=== PATIENT | female | born 2000 | race Caucasian/White ===

== ENCOUNTER 2020-04-20 08:27 | Observation (INO) | payer OTHER, SELFPAY ==
[2020-04-20 08:26] VITALS: BP 136/63; PULSE 80; RESP 18; TEMP 36.5; O2SAT 96
[2020-04-20 08:45] VITALS: BMI 30.4
[2020-04-20 09:06] VITALS: BP 130/60; PULSE 73
[2020-04-20 09:15] VITALS: BP 125/67; PULSE 70
[2020-04-20 09:24] LABS: Add Urine Microscopic? YES; Appearance Urine Clear (Clear); Bacteria Urine Trace /hpf; Bilirubin Urine Negative (Negative); Blood Urine Negative (Negative); Color Urine Yellow (Yellow); Glucose Urine UA Negative (Negative); Ketones Urine Negative (Negative); Leukocyte Esterase Ur 2+ LEU/UL (NEGATIVE); Mucus Urine Rare /lpf; Nitrate Urine Negative (Negative); Protein Urine Negative (Negative); Specific Grav Ur 1.011 (1.001-1.035); Squamous Epithelial Cell Urine Moderate /hpf (Few); Urobilinogen Urine Negative mg/dL (<2.0)
[2020-04-20 09:30] VITALS: BP 125/63; PULSE 70
[2020-04-20 09:45] VITALS: BP 131/56; PULSE 65
--- NOTE | 2020-04-20 10:21 | OBADM ---
This patient, Ramakrishna Canada, admitted to the OB room OB Post 117 for observation. Patient/family oriented to hospital policies and general routines including ID bracelet, bed and alarms, visiting hours, pain management, procedures, bathroom and other care routines, personal items, smoking policy, room service/diet, and visiting hours. Patient/Family are encouraged to report perceived risks to care and to ask questions if they do not understand what they are told or what they should do.
--- NOTE | 2020-05-03 07:14 | PM.OBTRLD ---
OB - Triage/Final Diagnosis Visit Information Reason for evaluation: threatened labor Evaluation Laboratory results: Laboratory Tests 04/20/20 09:05 Urine Color Yellow Urine Appearance Clear Urine pH 7.0 Ur Specific [place] 1.011 Urine Protein Negative Urine Glucose (UA) Negative Urine Ketones Negative Ur Blood (Man) Negative Urine Nitrate Negative Urine Bilirubin Negative Urine Urobilinogen Negative Ur Leukocyte Esterase 2+ H Urine RBC 3-5 H Urine WBC 10-15 H Ur Squamous Epith Cells Moderate H Urine Bacteria Trace Urine Mucus Rare
== END 2020-04-20 10:10 | disposition home or self-care (01) ==
PROVIDERS: Admitting Provider Obstetrics & Gynecology; PCP Emergency Medicine; Visit Provider Obstetrics & Gynecology
DX: O47.9 False labor, unspecified (principal); Z3A.00 Weeks of gestation of pregnancy not specified
CPT/HCPCS: 81001; 87086; G0378; G0379

== ENCOUNTER 2020-07-02 12:17 | Observation (INO) | payer OTHER, SELFPAY ==
[2020-07-02] VITALS (7 sets, daily range): BP systolic 140–150; BP diastolic 44–85; PULSE 79–94; BMI 35.6
[2020-07-02 13:19] LABS: Add Urine Microscopic? YES; Appearance Urine Clear (Clear); Bacteria Urine Trace /hpf; Bilirubin Urine Negative (Negative); Blood Urine Negative (Negative); Color Urine Straw (Yellow); Glucose Urine UA Negative (Negative); Ketones Urine Negative (Negative); Leukocyte Esterase Ur Trace LEU/UL (Negative); Nitrate Urine Negative (Negative); Protein Urine Negative (Negative); RBC Urine 0-2 /hpf (0-2); Specific Grav Ur 1.008 (1.001-1.035); Squamous Epithelial Cell Urine Rare /hpf (Few); Urobilinogen Urine Negative mg/dL (<2.0)
[2020-07-02 13:49] LABS: Basophils Percent Auto 0.1 % (0.2-1.2); Eosinophils Absolute Auto 0.2 K/mm3 (0-0.3); Eosinophils Percent Auto 1.5 % (0-4.4); Immature Granulocyte Absolute 0.09 K/mm3 (0.00-0.031); Immature Granulocyte Percent A 0.6 % (0-0.5); Lymphocytes Absolute Auto 3.03 K/mm3 (0.9-3.2); Lymphocytes Percent Auto 19.3 % (18.3-44.2); Mean Corpuscular HGB Conc 34.3 g/dl (32-36); Mean Corpuscular Hemoglobin 31.1 pg (26-34); Mean Corpuscular Volume 90.7 fl (80-100); Mean Platelet Volume 10.1 fl (7.4-10.4); Monocytes Percent Auto 6.4 % (2.6-8.5); Neutrophils Absolute Auto 11.3 K/mm3 (1.3-6.7); Neutrophils Percent Auto 72.1 % (45.5-73.1); Platelet Count Result 277 k/mm3 (150-375); Red Blood Count 3.86 M/mm3 (4.2-5.4); Red Cell Distribution Width 12.2 % (11.5-14.5); White Blood Count 15.7 K/mm3 (4.5-10.0)
[2020-07-02 13:54] LABS: Creatinine Urine 31.7 mg/dL; Total Protein Urine Random 19 mg/dL
[2020-07-02 14:02] LABS: Alanine Aminotransferase 17 U/L (4-35); Albumin Level 3.2 g/dL (3.5-5.1); Alkaline Phosphatase 98 U/L (38-126); Anion Gap 4 mmol/L (8-16); Aspartate Amino Transferase 26 U/L (14-36); Bilirubin,Total 0.3 mg/dL (0.2-1.3); Blood Urea Nitrogen 4 mg/dL (7-17); Calcium 9.1 mg/dL (8.4-10.2); Carbon Dioxide 29 mmol/L (22-30); Chloride 106 mmol/L (98-107); Estimated Glomerular Filt Rate > 60; Glucose 95 mg/dL (65-105); Potassium 3.5 mmol/L (3.4-5.0); Sodium 139 mmol/L (137-145); Uric Acid 4.5 mg/dL (2.5-7.5)
--- NOTE | 2020-07-02 16:26 | PM.OBTRLD ---
OB - Triage/Final Diagnosis Evaluation Laboratory results: Laboratory Tests 07/02/20 07/02/20 07/02/20 13:09 13:39 13:39 WBC 15.7 H RBC 3.86 L Hgb 12.0 Hct 35.0 L MCV 90.7 MCH 31.1 MCHC 34.3 RDW 12.2 Plt Count 277 MPV 10.1 Immature Gran % (Auto) 0.6 H Neut % (Auto) 72.1 Lymph % (Auto) 19.3 [place] % (Auto) 6.4 Eos % (Auto) 1.5 Baso % (Auto) 0.1 L Lymph # (Auto) 3.03 [place] # (Auto) 1.0 H Eos # (Auto) 0.2 Baso # (Auto) 0.0 Abs Immat Gran (auto) 0.09 H Absolute Neuts (auto) 11.3 H Absolute Nucleated RBC 0.0 Nucleated RBC % 0.0 Sodium Potassium Chloride Carbon Dioxide Anion Gap BUN Creatinine Estim Creat Clear Calc Estimated GFR Glucose Uric Acid Calcium Total Bilirubin AST ALT Alkaline Phosphatase Total Protein Albumin Urine Color Straw Urine Appearance Clear Urine pH 7.0 Ur Specific [place] 1.008 Urine Protein Negative Urine Glucose (UA) Negative Urine Ketones Negative Ur Blood (Man) Negative Urine Nitrate Negative Urine Bilirubin Negative Urine Urobilinogen Negative Leukocyte Esterase Rfl Trace H Urine RBC 0-2 Urine WBC 4-6 H Ur Squamous Epith Cells Rare Urine Bacteria Trace U Random Total Protein 19 Urine Creatinine 31.7 07/02/20 13:39 WBC RBC Hgb Hct MCV MCH MCHC RDW Plt Count MPV Immature Gran % (Auto) Neut % (Auto) Lymph % (Auto) [place] % (Auto) Eos % (Auto) Baso % (Auto) Lymph # (Auto) [place] # (Auto) Eos # (Auto) Baso # (Auto) Abs Immat Gran (auto) Absolute Neuts (auto) Absolute Nucleated RBC Nucleated RBC % Sodium 139 Potassium 3.5 Chloride 106 Carbon Dioxide 29 Anion Gap 4 L BUN 4 L Creatinine 0.60 L Estim Creat Clear Calc Not Reportable Estimated GFR > 60 Glucose 95 Uric Acid 4.5 Calcium 9.1 Total Bilirubin 0.3 AST 26 ALT 17 Alkaline Phosphatase 98 Total Protein 6.0 L Albumin 3.2 L Urine Color Urine Appearance Urine pH Ur Specific [place] Urine Protein Urine Glucose (UA) Urine Ketones Ur Blood (Man) Urine Nitrate Urine Bilirubin Urine Urobilinogen Leukocyte Esterase Rfl Urine RBC Urine WBC Ur Squamous Epith Cells Urine Bacteria U Random Total Protein Urine Creatinine Vital signs: Vital Signs - 24 hr 07/02/20 13:05 07/02/20 14:33 07/02/20 15:01 Pulse Rate 86 87 85 Blood Pressure 141/77 H 140/73 144/76 H 07/02/20 15:32 07/02/20 15:37 07/02/20 16:01 Pulse Rate 94 88 79 Blood Pressure 150/44 H 144/70 H 140/69 Final Diagnosis (1) Pre-eclampsia, mild, third trimester: Code(s): O14.03 - Mild to moderate pre-eclampsia, third trimester Status: Acute
--- NOTE | 2020-07-02 17:02 | OBADM ---
This patient, Ramakrishna Canada, admitted to the OB room OB Post 117 for observation. Patient/family oriented to hospital policies and general routines including ID bracelet, bed and alarms, visiting hours, pain management, procedures, bathroom and other care routines, personal items, smoking policy, room service/diet, call light, and visiting hours. Patient/Family are encouraged to report perceived risks to care and to ask questions if they do not understand what they are told or what they should do.
== END 2020-07-02 17:00 | disposition home or self-care (01) ==
PROVIDERS: Admitting Provider Obstetrics & Gynecology; PCP Emergency Medicine; Visit Provider Obstetrics & Gynecology
DX: O14.03 Mild to moderate pre-eclampsia, third trimester (principal); Z3A.00 Weeks of gestation of pregnancy not specified
CPT/HCPCS: 36415; 80053; 81001; 82570; 84156; 84550; 85025; G0378; G0379

== ENCOUNTER 2020-07-11 16:39 | Observation (INO) | payer OTHER, SELFPAY ==
[2020-07-11 17:01] VITALS: BP 149/79; PULSE 92
[2020-07-11 17:16] VITALS: BP 144/74; PULSE 95
[2020-07-11 17:31] VITALS: BP 146/80; PULSE 95
[2020-07-11 17:34] LABS: Add Urine Microscopic? YES; Appearance Urine Clear (Clear); Bacteria Urine Trace /hpf; Bilirubin Urine Negative (Negative); Blood Urine 2+ (Negative); Color Urine Yellow (Yellow); Glucose Urine UA Negative (Negative); Ketones Urine Negative (Negative); Leukocyte Esterase Ur 1+ LEU/UL (NEGATIVE); Nitrate Urine Negative (Negative); Protein Urine Negative (Negative); RBC Urine 0-2 /hpf (0-2); Specific Grav Ur 1.008 (1.001-1.035); Squamous Epithelial Cell Urine Rare /hpf (Few); Urobilinogen Urine Negative mg/dL (<2.0); WBC Urine 21-30 /hpf (0-3)
[2020-07-11 18:26] VITALS: BMI 35.6
--- NOTE | 2020-07-16 08:56 | PM.OBTRLD ---
OB - Triage/Final Diagnosis Visit Information Comments/Additional reasons for admission: 1. Placenta previa 2. Vaginal bleeding 3. Irregular contractions. Evaluation Laboratory results: Laboratory Tests 07/11/20 17:22 Urine Color Yellow Urine Appearance Clear Urine pH 7.0 Ur Specific [place] 1.008 Urine Protein Negative Urine Glucose (UA) Negative Urine Ketones Negative Ur Blood (Man) 2+ H Urine Nitrate Negative Urine Bilirubin Negative Urine Urobilinogen Negative Ur Leukocyte Esterase 1+ H Urine RBC 0-2 Urine WBC 21-30 H Ur Squamous Epith Cells Rare Urine Bacteria Trace
== END 2020-07-11 19:25 | disposition home or self-care (01) ==
PROVIDERS: Admitting Provider Obstetrics & Gynecology; Visit Provider Obstetrics & Gynecology
DX: O44.10 Complete placenta previa with hemorrhage, unspecified trimester (principal); Z3A.00 Weeks of gestation of pregnancy not specified
CPT/HCPCS: 73620; 81001; 87086; G0378; G0379

== ENCOUNTER 2020-07-21 09:12 | Outpatient (RCR) | payer OTHER, SELFPAY ==
--- NOTE | ~2020-07-21 | US_ITS ---
EXAMINATION: US OB BPP wo non-stress DATE: 07/21/2020 10:25 DIESEL LOCOMOTIVE FIRER/FIREMAN INDICATION: Evaluate well-being TECHNIQUE: Real-time transabdominal obstetric ultrasound. FINDINGS: No prior studies for comparison. There is a single living fetus in vertex presentation. The placenta is anterior without placenta pre via. cardiac activity and movement is noted with a heart rate of 152 beats per minute. Biophysical profile: breathin of 2 movement: 2 of 2 tone: 2 of 2 Amniotic flud pocket: 2 of 2 Total score: 8 of 8 IMPRESSION: 1. Single living intrauterine in vertex presentation. 2: Total biophysical profile score of 8/8. Reviewed, dictated and finalized at location B. EL LOCOMOTIVE FIRER/FIREMAN
[2020-07-21 10:45] VITALS: BP 147/86; PULSE 89
== END 2020-07-27 07:38 | disposition home or self-care (01) ==
LOC: ANHOBOP 09:12
PROVIDERS: Visit Provider Obstetrics & Gynecology
DX: O26.893 Other specified pregnancy related conditions, third trimester (principal); R03.0 Elevated blood-pressure reading, without diagnosis of hypertension; Z3A.36 36 weeks gestation of pregnancy
CPT/HCPCS: 59025; 76819

== ENCOUNTER 2020-07-24 16:02 | Inpatient (IN) | payer OTHER, SELFPAY ==
[2020-07-24] VITALS (94 sets, daily range): BP systolic 130–176; BP diastolic 53–105; PULSE 70–116; RESP 18–20; TEMP 36.9–37.6; O2SAT 91–100; BMI 35.6
--- NOTE | 2020-07-24 18:01 | WPDANESEPP ---
Anes - Eval Pre Procedure Procedure: labor epidural Date/Time: 07/24/20 18:01 Surgeon: kristen Pre Op Diagnosis: Contractions Patient Data Age: 20 Gender: F Height: 1.68 m Weight: 100 kg Last Vital Signs Pulse 96 07/24/20 18:00 BP 176/96 H 07/24/20 18:00 Allergies Allergy/AdvReac Type Severity Reaction Status Date / Time amoxicillin Allergy Unknown Hives Verified 09/19/18 15:18 Home Medications Medication Instructions Recorded Confirmed Type PNV cmb#95-ferrous fumarate-FA 1 tablet PO DAILY 07/21/20 07/21/20 History [] aspirin 81 mg PO DAILY 07/21/20 07/21/20 History folic acid 400 mcg PO DAILY 07/21/20 07/21/20 History metoclopramide HCl [Reglan] 10 mg PO Q6H PRN MDD 10 07/21/20 07/21/20 History Patient hx anesthesia problems: none Family hx anesthesia problems: none PMFSH Family History Family History (Updated 07/21/20 @ 10:51 by Sabino Dixon RN) Grandparent Hypertension Other Diabetes mellitus Family history of arthritis Family history of malignant neoplasm Family history of neuropathy Social History Social History Smoking status: Current every day smoker Alcohol intake: never Substance use: never Gender identity (if verbalized by the patient): Female Spiritual care concerns: No Exam Day of Procedure 07/24/20 18:01
--- NOTE | 2020-07-24 18:16 | LDADM ---
This patient, Ramakrishna Canada, was admitted to Labor/Delivery/Recovery 105 on 07/24/20 at 16:02. Plans for labor, pain management and were discussed with patient. Patient/family oriented to hospital policies and general routines including ID bracelet, bed and alarms, visiting hours, pain management, procedures, bathroom and other care routines, personal items, smoking policy, room service/diet and guest tray routines, infant security routines, and visiting hours. Patient/Family are encouraged to report perceived risks to care and to ask questions if they do not understand what they are told or what they should do. See OBIX for further documentation.
[2020-07-24 18:17] LABS: Basophils Percent Auto 0.2 % (0.2-1.2); Eosinophils Absolute Auto 0.2 K/mm3 (0-0.3); Eosinophils Percent Auto 1.1 % (0-4.4); Hematocrit 33.8 % (37.0-47.0); Hemoglobin 11.9 g/dL (12.0-15.0); Immature Granulocyte Absolute 0.12 K/mm3 (0.00-0.031); Immature Granulocyte Percent A 0.7 % (0-0.5); Lymphocytes Absolute Auto 2.97 K/mm3 (0.9-3.2); Lymphocytes Percent Auto 16.6 % (18.3-44.2); Mean Corpuscular HGB Conc 35.2 g/dl (32-36); Mean Corpuscular Hemoglobin 30.4 pg (26-34); Mean Corpuscular Volume 86.4 fl (80-100); Mean Platelet Volume 10.2 fl (7.4-10.4); Monocytes Absolute Auto 1.1 K/mm3 (0.1-0.6); Neutrophils Absolute Auto 13.5 K/mm3 (1.3-6.7); Neutrophils Percent Auto 75.4 % (45.5-73.1); Platelet Count Result 272 k/mm3 (150-375); Red Blood Count 3.91 M/mm3 (4.2-5.4); Red Cell Distribution Width 12.5 % (11.5-14.5); White Blood Count 17.9 K/mm3 (4.5-10.0)
[2020-07-24] MEDS: LACTATED RINGERS 1,000 ML 125 ML IV CONT ×2 (18:21→18:50)
[2020-07-24 19:17] LABS: Chloride 107 mmol/L (98-107)
[2020-07-24 19:21] LABS: Alanine Aminotransferase 44 U/L (4-35); Albumin Level 3.2 g/dL (3.5-5.1); Alkaline Phosphatase 149 U/L (38-126); Anion Gap 7 mmol/L (8-16); Aspartate Amino Transferase 38 U/L (14-36); Bilirubin,Total 0.5 mg/dL (0.2-1.3); Blood Urea Nitrogen 4 mg/dL (7-17); Calcium 8.9 mg/dL (8.4-10.2); Carbon Dioxide 25 mmol/L (22-30); Estimated CRCL calculation 149 ml/min; Estimated Glomerular Filt Rate > 60; Glucose 80 mg/dL (65-105); Potassium 2.7 mmol/L (3.4-5.0); Sodium 139 mmol/L (137-145); Uric Acid 5.3 mg/dL (2.5-7.5)
[2020-07-24 19:29] LABS: Creatinine Urine 62.4 mg/dL; Total Protein Urine Random 46 mg/dL; Ur Ttl Prot Creatinine Ratio 0.74 mg/mg (0-0.20)
[2020-07-24] MEDS: OXYTOCIN 30 UNITS/NS 500 ML 30 UNITS/500 ML BAG IV CONT (19:31)
[2020-07-24] MEDS: POTASSIUM CHLORIDE 20 MEQ PACKET (FOR LIQUID) PO (19:57)
[2020-07-24 21:43] LABS: Amphetamine Screen Urine Negative (Negative); Barbiturate Screen Urine Negative (Negative); Benzodiazepines Screen Urine Negative (Negative); Cannabinoid Screen Urine Positive (Negative); Cocaine Screen Urine Negative (Negative); Methadone Screen Urine Negative (Negative); Opiate Screen Urine Negative (Negative); Phencyclidine Screen Urine Negative (Negative)
[2020-07-25] VITALS (70 sets, daily range): BP systolic 134–182; BP diastolic 52–116; PULSE 85–142; RESP 16–20; TEMP 36.7–37.9; O2SAT 86–100
--- NOTE | 2020-07-25 00:44 | WPDHPUPDATE1 ---
History and Physical Update Update Date/Time: 07/25/20 00:44 History and Physical has been reviewed, including an updated exam of the patient. There are NO changes in the patient's condition. Risks, benefits, and alternatives have been discussed and questions answered. Patient agrees to proceed with procedure.
--- NOTE | 2020-07-25 00:44 | WPDOBADMIT ---
Obstetrics - Admit Note Admission Note: record reviewed. No pertinent additions to the history and/or any subsequent changes in the physical findings that are not consistent with the expected course of the were found. Additions to the history and/or subsequent changes in the physical findings follow. None.
--- NOTE | 2020-07-25 00:45 | PM.OBPRVD ---
OB - Delivery Note Procedure Route of delivery: Laceration Description: Perineal - 1st Degree Delivery repair: chromic Specimen: Yes Quantitative Blood Loss: 300 Anesthesia type: Epidural Disposition: floor Narrative: Patient prepped and draped in the usual manner for this procedure. Maternal expulsive efforts delivered vertex which was then followed by the rest of the baby without difficulty. Cord was clamped and cut and placenta delivered spontaneously. Cervix vagina and vulva were inspected first-degree laceration was noted and readily repaired using 2 0 chromic [id number] suture. Uterus was well contracted there was no significant bleeding. At this point procedure was considered complete. Baby Weeks of gestation at delivery: 37 gender: Female Weight (pounds): 5 Weight (ounces): 14 score one minute: 9 score five minutes: 9
[2020-07-25] MEDS: OXYTOCIN 30 UNITS/NS 500 ML 30 UNITS/500 ML BAG 125 UNITS IV CONT ×2 (01:06→02:31)
[2020-07-25] MEDS: miSOPROStol 200 MCG TABLET 800 MCG (01:22)
[2020-07-25] MEDS: fentaNYL CITRATE INJ (*CRX) 100 MCG/2 ML VIAL 50 MCG IV PUSH (01:28)
[2020-07-25] MEDS: LACTATED RINGERS 1,000 ML 125 ML IV CONT (01:41)
--- NOTE | 2020-07-25 02:04 | P.PNOB_ITS ---
Pain Control Date/time seen: 07/25/20 02:04 Called due to increased bleeding unresponsive to IV Pitocin. Patient was re- examined with no evident lacerations or unrecognized delivery trauma. Uterus is well contracted and minimal bleeding at this point. Placenta was also reinspected and was without evidence of abnormality and did appear intact. We will continue to monitor for further bleeding but at this point she does appear to have well contracted uterus and no significant bleeding at this time.
[2020-07-25] MEDS: CARBOPROST TROMETHAMINE 250 MCG/ML AMPUL IM (04:11)
[2020-07-25] MEDS: LOPERAMIDE HCL 2 MG CAPSULE 4 MG PO (04:11)
[2020-07-25] MEDS: HYDROcodone/acetaminophen (*CRX) 5-325 MG TABLET 1 TAB PO (04:37)
[2020-07-25] MEDS: WITCH HAZEL 40 PADS 1 PAD TOPICAL (04:38)
[2020-07-25] MEDS: BENZOCAINE 20% AER SPR (*SP) 56 GM CAN 1 SPRAY TOPICAL (04:38)
[2020-07-25] MEDS: ONDANSETRON INJ 4 MG/2 ML VIAL IV PUSH (04:52)
--- NOTE | 2020-07-25 06:30 | OBPPTRN ---
Patient transferred to post room # 284via wheelchair. Support person present. Oriented to unit, room, information board, rooming in, admission packet and security measures. Patient verbalizes understanding.
[2020-07-25] MEDS: DOCUSATE SODIUM 100 MG CAPSULE PO ×2 (09:29→16:04)
[2020-07-25] MEDS: LABETALOL HCL 100 MG TABLET PO ×2 (09:29→20:44)
[2020-07-25] MEDS: POLYSACCHARIDE IRON COMPLEX 150 MG CAPSULE PO ×2 (09:29→16:03)
[2020-07-25] MEDS: MULTIVIT/MIN/PREN/FOL AC/IRON TABLET 1 TAB PO (09:29)
[2020-07-25] MEDS: POTASSIUM CHLORIDE 20 MEQ PACKET (FOR LIQUID) PO ×2 (09:30→16:03)
[2020-07-25 10:31] LABS: Hematocrit 24.8 % (37.0-47.0); Hemoglobin 8.8 g/dL (12.0-15.0)
[2020-07-25 10:45] LABS: Anion Gap 3 mmol/L (8-16); Blood Urea Nitrogen 3 mg/dL (7-17); Calcium 8.1 mg/dL (8.4-10.2); Carbon Dioxide 25 mmol/L (22-30); Chloride 106 mmol/L (98-107); Estimated CRCL calculation 176 ml/min; Estimated Glomerular Filt Rate > 60; Glucose 108 mg/dL (65-105); Potassium 3.3 mmol/L (3.4-5.0); Sodium 134 mmol/L (137-145)
[2020-07-26 05:58] LABS: Hemoglobin 6.8 g/dL (12.0-15.0)
[2020-07-26 05:59] LABS: Hematocrit 20.3 % (37.0-47.0)
--- NOTE | 2020-07-26 07:03 | WPDANLDPN2 ---
Anes-Prog Note L&D Date/Time: 07/26/20 07:03 Comfortable throughout: labor and delivery Neuraxial method: epidural Epidural/Spinal procedure site: clean & non-tender Neuro status: Neuro function grossly intact. Cardiovascular status: normal Respiratory status: normal Airway patency: baseline Mental status: baseline Post-Op hydration status: normal Vital Signs: Last Vital Signs Temp 37.4 C 07/25/20 20:00 Pulse 100 07/25/20 20:44 Resp 16 07/25/20 20:00 BP 140/52 L 07/25/20 20:00 Pulse Ox 98 07/25/20 20:00 Pain score (VAS): 08/29 I/O: Intake & Output 07/25/20 07/25/20 07/26/20 15:59 23:59 07:59 Intake Total 500 Output Total 1700 550 Balance -1200 -550 Post-procedural complaints: none Patient feedback: Patient satisfied with anesthetic care.
--- NOTE | 2020-07-26 07:21 | PM.OBDSVD ---
DS: Admitting Diagnosis Admitting Diagnosis Admitting Diagnosis: Contractions OB - DS: Summary OB Procedures : None OB Procedures Intrapartum: Spontaneous Vag Delivery OB Procedures: : None Time Spent with Patient Time attestation: Total time spent providing and/or coordinating discharge services: DS: Data Data Completed and Pending Pending studies at discharge: Pending at discharge 07/25/20 00:34 Surgical [PTH] Routine Labs on day of discharge: Labs from last 24 hours 07/26/20 07/25/20 07/25/20 05:25 10:25 10:25 Hgb 6.8 L* 8.8 L D Hct 20.3 L* 24.8 L Sodium 134 L Potassium 3.3 L Chloride 106 Carbon Dioxide 25 Anion Gap 3 L BUN 3 L Creatinine 0.50 L Estim Creat Clear Calc 176 Estimated GFR > 60 Glucose 108 H Calcium 8.1 L Discharge Plan Discharge Discharging Clinician: See Peres Patient Disposition: Home, Self-Care Activity: as tolerated Diet: as tolerated Patient Instructions: Antibiotic Form Stand Alone Forms: General Discharge Information Follow-up/Referrals: See Peres MD [Physician] - 1 Week Discharge Medications: New labetalol 100 mg Tablet 100 mg PO Q12HR Qty: 60 RF: 0 ibuprofen 600 mg Tablet 600 mg PO Q6H PRN (Reason: Cramping) Qty: 30 RF: 0 Continued aspirin 81 mg Tablet,Chewable 81 mg PO DAILY RF: 0 metoclopramide HCl [Reglan] 10 mg Tablet 10 mg PO Q6H MDD 10 PRN (Reason: Nausea) RF: 0 PNV cmb#95-ferrous fumarate-FA [] 28 mg iron- 800 mcg Tablet 1 tablet PO DAILY RF: 0 Discontinued folic acid 15 mg Tablet 400 mcg PO DAILY RF: 0 Date of admission: 07/24/20 16:02 Primary Care Provider: PHYSICIAN NOT ON STAFF,NONSTAFF Admitting Provider: See Peres Attending physician on admission: See Peres
[2020-07-26] MEDS: POLYSACCHARIDE IRON COMPLEX 150 MG CAPSULE PO (07:41)
[2020-07-26] MEDS: IBUPROFEN 600 MG TABLET PO (07:41)
[2020-07-26] MEDS: DOCUSATE SODIUM 100 MG CAPSULE PO (07:41)
[2020-07-26 08:00] VITALS: BP 141/70; PULSE 91; RESP 18; TEMP 36.8; O2SAT 100
--- NOTE | 2020-07-26 08:40 | PC.NURSE ---
Patient viewed the discharge video Mother & Baby Care, The First Two Weeks . Patient was given the opportunity and encouraged to ask questions. Patient verbalized understanding of information shared and has been given the mother/baby guide for home reference.
[2020-07-26 10:05] VITALS: PULSE 90
[2020-07-26] MEDS: LABETALOL HCL 100 MG TABLET PO (10:05)
[2020-07-26] MEDS: POTASSIUM CHLORIDE 20 MEQ PACKET (FOR LIQUID) PO (10:05)
[2020-07-26 13:31] LABS: Rapid Plasma Reagin Non-Reactive (NonReactive)
[2020-07-27 08:01] VITALS: BP 174/95; PULSE 122; RESP 24; TEMP 37.7; O2SAT 89
--- NOTE | 2020-08-09 07:15 | PM.OBDSVD ---
DS: Admitting Diagnosis Admitting Diagnosis Admitting Diagnosis: OB - DS: Summary OB Procedures : None OB Procedures Intrapartum: Spontaneous Vag Delivery OB Procedures: : Other Time Spent with Patient Time attestation: Total time spent providing and/or coordinating discharge services: DS: Data Data Completed and Pending Completed studies during hospitalization: Pending at discharge 07/25/20 00:34 Surgical [PTH] Routine Discharge Plan Discharge Discharging Clinician: See Peres Patient Disposition: Home, Self-Care Activity: as tolerated Diet: as tolerated Discharge Instructions: Education: Mom and Baby Guide Given to: Mother Follow-Up: Call your delivering provider's office for an appointment to be seen in: 1 Week Mom and baby should come to the [facility] for the follow-up appointment. Appointment Date/Time: July 27, 2020 at 8:00 am What to expect at your follow-up visit: Blood Pressure Check Physical Assessment Call [phone] if you are unable to keep your appointment time. BREAST CARE: * Wear a snug supportive bra. Bottle Feeding: * May apply ice packs EPISIOTOMY/PERINEAL CARE: * Until bleeding stops, use your yumiko bottle after urinating * Change your pad frequently throughout the day * You may take sitz baths several times a day (fill your bathtub with warm water and soak for 20 minutes.) Do NOT bathe in the water * No tub baths until seen by your physician - You may shower ACTIVITY: * Rest as much as possible. * Do not exercise or lift anything heavier than your baby (such as laundry or other children.) * Do not put anything into the vagina. No douching, tampons, or sexual activity until seen by physician. NOTIFY PHYSICIAN IF YOU HAVE ANY QUESTIONS OR IF ANY OF THE FOLLOWING SYMPTOMS OCCUR: * If your episiotomy becomes red, swollen, or more painful than what you have experienced in the hospital. * If your vaginal bleeding becomes foul smelling. * If your vaginal bleeding becomes more heavy than a period or if your bleeding changes from pink to bright red. However, you may pass an occasional walnut-sized clot once or twice for the first week . * If you experience a sharp, shooting pain in you calves. * If you discover a hard, reddened area on your breast or if you experience flu-like symptoms. DIET: * Eat regular, well-balanced meals. * Drink plenty of fluids daily. If , drink to thirst. Patient Instructions: Antibiotic Form Stand Alone Forms: General Discharge Information Follow-up/Referrals: See Peres MD [Physician] - 1 Week Discharge Medications: New labetalol 100 mg Tablet 100 mg PO Q12HR Qty: 60 RF: 0 Continued aspirin 81 mg Tablet,Chewable 81 mg PO DAILY RF: 0 PNV cmb#95-ferrous fumarate-FA [] 28 mg iron- 800 mcg Tablet 1 tablet PO DAILY RF: 0 Discontinued folic acid 15 mg Tablet 400 mcg PO DAILY RF: 0 No Action folic acid 1 mg tablet 1 mg PO DAILY RF: 0 calcium carbonate-vitamin D3 600 mg(1,500mg) -400 unit tablet 1 tablet PO DAILY RF: 0 Date of admission: 07/24/20 16:02 Primary Care Provider: PHYSICIAN NOT ON STAFF,NONSTAFF Admitting Provider: Kaveh Winston Attending physician on admission: See Peres Condition: Stable
== END 2020-07-26 10:21 | disposition home or self-care (01) | DRG 560 ==
LOC: ANHLDR 17:53 → ANHOB2 07-25 06:32
PROVIDERS: Admitting Provider Obstetrics & Gynecology; Visit Provider Obstetrics & Gynecology
DX: O99.824 Streptococcus B carrier state complicating childbirth (principal); O69.2XX0 Labor and delivery complicated by other cord entanglement, with compression, not applicable or unspecified; O70.0 First degree perineal laceration during delivery; Z3A.37 37 weeks gestation of pregnancy; Z37.0 Single live birth; Z23 Encounter for immunization
CPT/HCPCS: 36415; 80048; 80053; 80307; 82570; 84156; 84550; 85014; 85018; 85025; 86592; 86850; 86900; 86901; 88307; 90471; 90653; A9270; G0008; J2405; J2590; J2795; J3010; J3370; J7120

== ENCOUNTER 2020-07-27 09:09 | Observation (INO) | payer OTHER, SELFPAY ==
[2020-07-27] VITALS (34 sets, daily range): BP systolic 151–182; BP diastolic 76–112; PULSE 83–116; RESP 16–41; TEMP 36.6–37.7; O2SAT 86–98; BMI 35.2
--- NOTE | 2020-07-27 | ECHO_ITS ---
Patient Info Name: Ramakrishna Canada Age: 20 years : 2000 Gender: Female Ht: 66 in Wt: 225 lbs BSA: 2.22 m2 HR: 95 bpm BP: 169 / 104 mmHg Heart Rhythm: Sinus Rhythm Technical Quality: Good Exam Date: 07/27/2020 11:37 AM Exam Location: [facility] Patient Status: Inpatient Admit Date: 07/27/2020 Staff Ordering Physician: Tang Finnegan PA-C Service Officer: Be Epstein RDCS Attending Provider: Hanna Devlin MD Referring Physician: Kain JONES; Exam Type: CA echo doppler color flow Study Info Indications R06.02 - Shortness of breath Complete two-dimensional, color flow and Doppler transthoracic echocardiogram is performed. History/Risk Factors Shortness of breath; post 2 days. Summary 1. Complete two-dimensional, color flow and Doppler transthoracic echocardiogram is performed. 2. Left ventricular chamber dimension is normal. 3. Left ventricular systolic function is normal, estimated at 50-55%. 4. Right ventricular chamber dimension is normal. 5. There is trace tricuspid valve regurgitation. 6. TR velocity suggests estimated pulmonary artery pressure of 55 mmHg. Left Ventricle Left ventricular chamber dimension is normal. Left ventricular systolic function is normal, estimated at 50-55%. The left ventricular diastolic function is normal. Right Ventricle Right ventricular chamber dimension is normal. Left Atria Left atrial chamber dimension is normal. Right Atria Right atrial chamber dimension is normal. Aortic Valve The aortic valve is normal. Pulmonic Valve The pulmonic valve is normal. Mitral Valve The mitral valve has normal leaflets. Tricuspid Valve The tricuspid valve leaflets are normal. There is trace tricuspid valve regurgitation. TR velocity suggests estimated pulmonary artery pressure of 55 mmHg. Pericardium/Pleural The pericardium appears normal. Aorta The aortic root size at the sinus of Valsalva is normal. Left Ventricular Outflow Tract Name Value Normal LVOT 2D LVOT Diameter 1.9 cm LVOT Doppler LVOT Peak Gradient 10 mmHg LVOT Mean Gradient 5 mmHg LVOT VTI 27 cm LVOT VTI/AV VTI Ratio 0.8 LVOT Stroke Volume 79 ml LVOT CO 7.2 l/min LVOT CI 3.3 l/min/m2 Mitral Valve Name Value Normal MV Doppler MV Decel [place] 1,094 cm/s2 MV PHT 38 ms MV Area (PHT) 5.9 cm2 4.0-5.0 MV Diastolic Function MV E Peak Velocity 142 cm/s MV A Peak Velocity 91 cm/s
--- NOTE | ~2020-07-27 | XR_ITS ---
EXAMINATION: XR chest 1V portable DATE: 07/27/2020 10:59 INDICATION: Cough and shortness of breath. TECHNIQUE: A single frontal view of the chest was obtained. COMPARISON: Chest CT 07/27/2020 FINDINGS: There are patchy airspace opacities and nodules throughout the lungs bilaterally. No visibl e pleural effusion. No pneumothorax. The heart size is normal. IMPRESSION: 1. Diffuse lung disease, consistent with pulmonary edema without or with pneumonia. Reviewed, dictated and finalized at location B. BRIM CURLER IMPRESSION: 1. Diffuse lung disease, consistent with pulmonary edema without or with pneumo ravi.
--- NOTE | ~2020-07-27 | CT_ITS ---
EXAMINATION: CTA chest PE protocol DATE: 07/27/2020 10:21 INDICATION: Shortness of breath. TECHNIQUE: Computed tomography angiography (CTA) of the chest was performed with 100 mL Omnipaque-350 intravenous contrast timed to evaluate the pulmonary arteries. Coronal maximum intensity projection 3D-reconstructions were created by the technologist. Automated exposure control and iterative reconst ruction technique were employed. The dose-length product was 507.28 mGy-cm. COMPARISON: None. FINDINGS: There is diffuse smooth septal thickening in the lungs with an inferior predominance. There are patchy airspace and opacities and nodules throughout the lungs bilaterally. There are small pleu ral effusions. The heart size is normal. No pericardial effusion. There is no pulmonary embolus. Ther e is mild thoracic spondylosis. IMPRESSION: 1. No pulmonary embolus. 2. Diffuse lung disease, consistent with pulmonary edema without or with pneumonia. 3. Small pleural effusions. Reviewed, dictated and finalized at location B. UARY TECHNICIAN IMPRESSION: 1. No pulmonary embolus. 2. Diffuse lung disease, consistent with pulmonary edema without or with pneumo ravi. 3. Small pleural effusions.
--- NOTE | 2020-07-27 09:14 | ECG_ITS ---
Measurements Intervals [place] Rate: 109 P: 58 AL: 142 QRS: 7 QRSD: 83 T: 61 QT: 314 QTc: 424 Interpretive Statements SINUS TACHYCARDIA VOLTAGE CRITERIA FOR LVH ABNORMAL ECG Electronically Signed On 07-27-2020 9:28:08 DIE PRESSER by Cleveland Austin D.O.
--- NOTE | 2020-07-27 09:26 | ED.GENADULT ---
HPI - General Adult General Chief complaint: Shortness of Breath/Dyspnea Stated complaint: sob, Time Seen by Provider: 07/27/20 09:12 Source: patient Mode of arrival: ambulatory Limitations: no limitations History of Present Illness HPI narrative: Patient presents from OB with chief complaint of shortness of breath that began suddenly at 4 AM while feeding her daughter. Patient states that she does not have any pain but began feeling short of breath that did not resolve with resting or lying down. Patient reports that she is 2 days from vaginally delivering her daughter. She states she was told by her FILM MOUNTER Dr. Peres that she bled more than normal and that she needed to begin taking iron and labetalol along with her vitamin and aspirin. Patient states she is unsure why she has to take a daily aspirin but was told to do so by her original FILM MOUNTER Dr. Brownlee before switching to Dr. Peres. Patient denies any pain with breathing, chest pain, fever, chills. Patient reports an occasional dry cough. She denies body aches, abdominal pain, nausea, vomiting, excessive bleeding or any other symptoms. Patient denies having any respiratory disorders or ever having any episodes of shortness of breath in the past. Related Data Home Medications Medication Instructions Recorded Confirmed PNV cmb#95-ferrous fumarate-FA 1 tablet PO DAILY 07/21/20 07/27/20 [] aspirin 81 mg PO DAILY 07/21/20 07/27/20 calcium carbonate-vitamin D3 1 tablet PO DAILY 07/27/20 07/27/20 folic acid 1 mg PO DAILY 07/27/20 07/27/20 Allergies Allergy/AdvReac Type Severity Reaction Status Date / Time amoxicillin Allergy Unknown Hives Verified 07/27/20 09:22 Review of Systems Review of Systems: Narrative: CONSTITUTIONAL: Denies fever, chills, or sweats. EYES: Denies visual changes, redness, or discharge. ENT: Denies rhinorrhea, congestion, sore throat, or otalgia. CARDIOVASCULAR: Denies chest pain, palpitations, or edema. RESPIRATORY: Reports: Reports that dyspnea and dry cough GASTROINTESTINAL: Denies abdominal pain, nausea, vomiting, or diarrhea. GENITOURINARY: Denies dysuria or hematuria. SKIN: Denies rash or itching. MUSCULOSKELETAL: Denies back pain, joint pain, or myalgia. NEUROLOGIC: Denies headache, numbness, dizziness, or weakness. PSYCHIATRIC: Denies anxiety or depression. [facility] Past Medical History Medical History (Updated 07/27/20 @ 16:49 by Tang Finnegan PA-C) Anemia Hypertension Vaginal delivery Surgical History Surgical History (Updated 07/27/20 @ 14:56 by Liane Juarez NP) H/O arthroscopic knee surgery Family History Family History Grandparent Hypertension Other Diabetes mellitus Family history of arthritis Family history of malignant neoplasm Family history of neuropathy Social History Social History (Updated 07/27/20 @ 14:57 by Liane Juarez NP) Social History: the patient stated that she quit smoking while she was it and then when she went home yesterday she had 2-3 cigarettes. No alcohol marijuana or illicit drugs. She is currently not working. She is not daughter out of power patent attorney she is a full code. The father of her child is Gareth Sweeney who she would like to have power patent attorney. Patient is single. Smoking status: Former smoker Tobacco type: cigarettes Second hand tobacco smoke exposure: No Alcohol intake: unknown Substance use: unknown Gender identity (if verbalized by the patient): Female Spiritual care concerns: No Exam Narrative: Exam Narrative: GENERAL: Well-appearing, well-nourished, and in no acute distress. HEAD: Normocephalic, atraumatic. EYES: PERRLA and EOMI. ENT: Nares clear, no rhinorrhea or epistaxis. Mucous membranes moist. Bilateral TMs pearly mendez nonbulging NECK: Supple. No adenopathy or masses. No carotid bruits or JVD CHEST: Clear to auscultation. No
[2020-07-27 09:30] LABS: Basophils Percent Auto 0.3 % (0.2-1.2); Eosinophils Absolute Auto 0.4 K/mm3 (0-0.3); Eosinophils Percent Auto 2.6 % (0-4.4); Hematocrit 22.9 % (37.0-47.0); Hemoglobin 7.7 g/dL (12.0-15.0); Immature Granulocyte Absolute 0.12 K/mm3 (0.00-0.031); Immature Granulocyte Percent A 0.9 % (0-0.5); Lymphocytes Absolute Auto 2.05 K/mm3 (0.9-3.2); Mean Corpuscular HGB Conc 33.6 g/dl (32-36); Mean Corpuscular Hemoglobin 30.4 pg (26-34); Mean Corpuscular Volume 90.5 fl (80-100); Mean Platelet Volume 9.8 fl (7.4-10.4); Monocytes Absolute Auto 0.6 K/mm3 (0.1-0.6); Monocytes Percent Auto 4.7 % (2.6-8.5); Neutrophils Absolute Auto 10.5 K/mm3 (1.3-6.7); Neutrophils Percent Auto 76.5 % (45.5-73.1); Platelet Count Result 284 k/mm3 (150-375); Red Blood Count 2.53 M/mm3 (4.2-5.4); Red Cell Distribution Width 12.9 % (11.5-14.5); White Blood Count 13.7 K/mm3 (4.5-10.0)
[2020-07-27 09:42] LABS: Alanine Aminotransferase 43 U/L (4-35); Albumin Level 2.9 g/dL (3.5-5.1); Alkaline Phosphatase 117 U/L (38-126); Anion Gap 2 mmol/L (8-16); Aspartate Amino Transferase 64 U/L (14-36); Bilirubin,Total 0.3 mg/dL (0.2-1.3); Blood Urea Nitrogen 7 mg/dL (7-17); Calcium 8.2 mg/dL (8.4-10.2); Carbon Dioxide 28 mmol/L (22-30); Chloride 108 mmol/L (98-107); Estimated CRCL calculation 151 ml/min; Estimated Glomerular Filt Rate > 60; Glucose 92 mg/dL (65-105); Potassium 3.3 mmol/L (3.4-5.0); Sodium 138 mmol/L (137-145)
[2020-07-27] MEDS: LABETALOL HCL INJ 100 MG/20 ML VIAL 20 MG IV PUSH (10:27)
[2020-07-27] MEDS: FUROSEMIDE INJ 40 MG/4 ML VIAL 20 MG IV PUSH (11:12)
[2020-07-27] MEDS: hydrALAZINE HCL 20 MG/ML VIAL 10 MG IV PUSH (12:09)
--- NOTE | 2020-07-27 14:30 | PC.NURSE ---
This patient, Ramakrishna Canada, was admitted to IMU Room 207-01. Patient/family oriented to hospital policies and general routines including ID bracelet, bed and alarms, visiting hours, pain management, procedures, bathroom and other care routines, personal items, smoking policy, room service/diet, and visiting hours. Information on how to activate the Rapid Response Team has been discussed. Patient/Family are encouraged to report perceived risks to care and to ask questions if they do not understand what they are told or what they should do.
--- NOTE | 2020-07-27 14:48 | PM.IMHP ---
H&P: HPI History of Present Illness Date/Time: 07/27/20 14:48 Chief complaint: postpardum sob pulmonary edema r/o covid Narrative: Ramakrishna Canada is a 20 year old female The patient delivered a daughter 2 days ago here at [facility]. Patient was noted to be hypertensive and anemic. The patient was started on labetalol on iron. The patient stated that she has mild vaginal bleeding. And her fundus is 2 finger tips below the umbilicus. Patient stated that she delivered at around 37 weeks. It was noted on the date of delivery Postpartumthat patient had increased bleeding unresponsive to Pitocin. There was no evidence of laceration or delivery trauma. her OBGYN had examined the patient and noted that her uterus was well contracted there was no significant bleeding at that time. The patient had a spontaneous vaginal delivery at that time. Her H&H was noted to be 6.8 and 20.3 March 26 on the 6 her H&H was 8.8 and24.8. The patient was discharged yesterday and developed some shortness of breath this morning. It was thought that the patient was at risk for PE and a CTA was performed and was read as no pulmonary embolus. Diffuse lung disease consistent pulmonary edema without a with pneumonia. Small pleural effusions. An echo was performed which was read as complete 2 dimensional color flow and Doppler transthoracic echoes performed. EF 50-55% which is normal. Trace tricuspid valve regurgitation. Patient has some mild peripheral edema. And she is currently on room air. Patient was swabbed for COVID-19. Chest x-ray was read as diffuse lung disease consistent with pulmonary edema without or with pneumonia. The patient stated that she had self quarantine the whole time she was . Nobody at her household is sick. She has no nausea vomiting or diarrhea no fever chills. Patient does stated she felt short of breath. A this is her 1st child and I asked her about anxiety. Patient denied anxiety at this time. The patient is crying in the room as she is stating that she misses her child. Her H&H today is 7.7 and 22.9. The patient had been started on iron. The patient came to the hospital to have a checkup for the baby and have a blood pressure check since her blood pressures been elevated. She was then sent to the hospital to be evaluated. The patient was given labetalol, Lasix and hydralazine. The patient is being admitted into observation status on the date of service 07/27/2020 Review of Systems Review of Systems: All systems reviewed & are unremarkable except as noted in HPI and below Constitutional: Constitutional: Reports as per HPI and Reports no additional constitutional complaints Eyes: Eyes: Reports as per HPI and Reports no additional eye complaints ENT: Reports system reviewed and no additional complaints, except as documented and Reports Normal hearing present Cardiovascular: Cardiovascular: Reports no additional cardiovascular complaints Respiratory: Respiratory: Reports no additional respiratory complaints and Reports no additional respiratory complaints Gastrointestinal: Gastrointestinal: Reports as per HPI and Reports no additional gastrointestinal complaints Musculoskeletal: Musculoskeletal: Reports no additional musculoskeletal complaints Integumentary/Breasts: Skin/Breast: Reports system reviewed and no additional complaints, except as docu and Reports as per HPI Neurologic: Reports system reviewed and no additional complaints, except as documented, Reports as per HPI and Reports Normal hearing present Psychiatric: Psychiatric: Reports no additional psychiatric complaints and Reports as per HPI Endocrine: Endocrine: Reports no additional endocrine complaints Hematologic/Lymphatic: Hematologic/Lymphatic: Reports no additional hematologic/lymphatic complaints Allergic/Immunologic: Allergic/Immunologic: Reports no additional allergic/immunologic complaints PMFSH Past Medical History Medical History (Updat
[2020-07-27 16:03] LABS: Bilirubin,Total 0.6 mg/dL (0.2-1.3); Lactate Dehydrogenase 817 U/L (313-618)
[2020-07-27 16:28] LABS: Iron 12 ug/dL (37-170)
[2020-07-27 16:37] LABS: Percent Iron Saturation 3 % (20-50)
[2020-07-27 17:19] LABS: Folic Acid > 20.0 ng/mL (2.76->20)
[2020-07-27 17:32] LABS: Hematocrit 23.5 % (37.0-47.0); Hemoglobin 7.8 g/dL (12.0-15.0)
[2020-07-27 18:51] LABS: SARS-CoV-2 RNA PCR Negative
[2020-07-27] MEDS: ACETAMINOPHEN 325 MG TABLET 650 MG PO (21:05)
[2020-07-27] MEDS: MELATONIN 3 MG TABLET PO (21:05)
[2020-07-27] MEDS: LABETALOL HCL 100 MG TABLET PO (21:12)
[2020-07-27 22:03] LABS: Hematocrit 20.6 % (37.0-47.0)
[2020-07-27 22:52] LABS: Immature Reticulocyte Fraction 34.8 % (3.0-15.9); Reticulocyte Hemoglobin Conten 31.5 pg (28.2-35.7); Reticulocyte Percent 4.25 % (0.7-4.3); Reticulocytes Absolute 0.11 B/L (32.2-175.7)
--- NOTE | 2020-07-28 00:23 | PC.NURSE ---
PATIENT INSISTENT ON LEAVING AMA. SHE IS CURRENTLY ON 3L O2, DUE TO DESATURATION ON ROOM AIR. PATIENT DOES NOT WEAR HOME O2. NURSING EXPLAINED THAT SHE IS AT MAJOR RISKS, WITH HYPERTENSION AND SHORTNESS OF BREATH. PATIENT IS COMPLETELY AWARE OF RISKS AND SIDE EFFECTS OF PREECLAMPSIA AND STILL WANTS TO LEAVE AMA. HOSPITALIST CALLED TO BEDSIDE. PATIENT VITALS CURRENTLY STABLE. PATIENT SIGNED AMA PAPERWORK. IV WAS PULLED AND BELONGINGS ALL TOGETHER TO LEAVE WITH PATIENT. CURRENTLY AWAITING TRANSPORT.
[2020-08-01 06:52] LABS: Albumin 2.7 g/dL (3.8-4.8); Alpha 1 Globulin 0.5 g/dL (0.2-0.3); Alpha 2 Globulin 0.9 g/dL (0.5-0.9); Beta 1 Globulin 0.5 g/dL (0.4-0.6); Gamma Globulin 0.7 g/dL (0.8-1.7); Protein, Total 5.6 g/dL (6.1-8.1)
[2020-08-04 18:15] LABS: Soluble Transferrin Receptor 1.08 mg/L (0.76-1.76)
== END 2020-07-28 00:30 | disposition left against medical advice (07) ==
LOC: ANHED 09:40 → ANHIMU 11:22
PROVIDERS: Nurse Practitioner; Physician Assistant; Admitting Provider Family Medicine; Emergency Provider Emergency Medicine; PCP Emergency Medicine; Visit Provider Family Medicine
DX: R06.02 Shortness of breath (principal); Z20.828 Contact with and (suspected) exposure to other viral communicable diseases; O99.53 Diseases of the respiratory system complicating the puerperium; J81.1 Chronic pulmonary edema; O90.81 Anemia of the puerperium; D50.9 Iron deficiency anemia, unspecified; I10 Essential (primary) hypertension; F17.210 Nicotine dependence, cigarettes, uncomplicated; Z23 Encounter for immunization
CPT/HCPCS: 36415; 71045; 71275; 80053; 82247; 82248; 82607; 82728; 82746; 83540; 83550; 83615; 84155; 84165; 84238; 84443; 85014; 85018; 85025; 85046; 86850; 86880; 86900; 86901; 86923; 87635; 93005; 93306; 96374; 96375; 99285; A9270; C9803; G0378; G0379; J0360; J1940; Q9967; U0003

== ENCOUNTER → 2022-04-06 10:08 | Outpatient (CLI) | payer OTHER, SELFPAY ==
--- NOTE | ~2022-04-06 | US_ITS ---
EXAMINATION: US OB /maternal detail DATE: 04/06/2022 10:52 INDICATION: Second trimester anatomic survey TECHNIQUE: Real-time ultrasound of the pelvis was performed. COMPARISON: None. FINDINGS: There is a single living fetus in transverse lie. The placenta is anterior and 5.3 cm from the web development intern al cervical os. The cervical length is 4.3 cm. heart rate is 138 beats per minute (bpm). cardiac activity and movement are noted. The amniotic fluid index is subjectively normal. The following anatomy was identified as normal: 4 chamber heart 3 vessel cord cord insertion kidneys urinary bladder stomach spine diaphragm ventricles cisterna magna cerebellum The following biometric data were obtained: Biparietal diameter (BPD): 5.6 cm; head circumference (HC): 21.6 cm; abdominal circumference (AC): 19 .3 cm; femur length (FL): 4.6 cm. These measurements are concordant. Estimated weight is 687 g +/- 103 g, which correlates with the 79th percentile when 07/30/2022 is used as estimated date of delivery. As single measurements, these parameters are each equal to the following estimated gestational ages w ith ranges of +/- 2 standard deviations: BPD: 23 weeks 2 days +/- 1 weeks 5 days. HC: 23 weeks 5 days +/- 1 weeks 3 days. AC: 24 weeks 0 days +/- 2 weeks 0 days. FL: 25 weeks 1 days +/- 2 weeks 1 days. estimated gestational age based solely on measurements from this exam is 24 weeks 0 days +/- 1 weeks 5 days. IMPRESSION: 1. Single living fetus in transverse lie. 2. Estimated weight is 687 g +/- 103 g, which correlates with the 79th percentile when 07/30/20 22 is used as estimated date of delivery. Reviewed, dictated and finalized at location A. IMPRESSION: 1. Single living fetus in transverse lie. 2. Estimated weight is 687 g +/- 103 g, which correlates with the 79th pe rcentile when 07/30/2022 is used as estimated date of delivery.
== END ==
PROVIDERS: PCP Advanced Practice Midwife; Visit Provider Advanced Practice Midwife
DX: Z36.9 Encounter for antenatal screening, unspecified (principal); Z3A.24 24 weeks gestation of pregnancy
CPT/HCPCS: 76805

== ENCOUNTER 2022-07-18 12:13 | Outpatient (CLI) | payer OTHER, SELFPAY ==
--- NOTE | ~2022-07-18 | US_ITS ---
EXAMINATION: US OB follow up DATE: 07/18/2022 12:45 INDICATION: Size greater than dates. Third trimester. TECHNIQUE: Real-time ultrasound of the pelvis was performed. COMPARISON: Ultrasound 04/06/2022 FINDINGS: There is a single living fetus in vertex presentation. The placenta is anterior. heart rate is 115 beats per minute (bpm). The amniotic fluid index is 15.6 cm, which is normal. The following biometric data were obtained: Biparietal diameter (BPD): 8.4 cm; head circumference (HC): 32.2 cm; abdominal circumference (AC): 32 .5 cm; femur length (FL): 7.5 cm. These measurements are discordant. The FL/BPD ratio is greater than the 95th percentile. Estimated weight is 2986 g +/- 448 g, which correlates with the 23rd percentile when 07/30/22 i s used as estimated date of delivery. As single measurements, these parameters are each equal to the following estimated gestational ages: BPD: 33 weeks 6 days. HC: 36 weeks 2 days. AC: 36 weeks 3 days. FL: 38 weeks 3 days. estimated gestational age based solely on measurements from this exam is 36 weeks 2 days +/- 2 weeks 4 days. IMPRESSION: 1. Single living fetus in vertex presentation. 2. Estimated weight is 2986 g +/- 448 g, which correlates with the 23rd percentile when is used as estimated date of delivery. 3. Discordant biometrics with high FL/BPD ratio. Reviewed, dictated and finalized at location A. NG MACHINE OPERATOR FLOORPERSON IMPRESSION: 1. Single living fetus in vertex presentation. 2. Estimated weight is 2986 g +/- 448 g, which correlates with the 23rd percentile when 07/30/22 is used as estimated date of delivery. 3. Discordant biometrics with high FL/BPD ratio.
== END 2022-07-18 12:14 | disposition home or self-care (01) ==
LOC: ANHIMG 12:14
PROVIDERS: PCP Emergency Medicine; Visit Provider Advanced Practice Midwife
DX: O36.63X0 Maternal care for excessive fetal growth, third trimester, not applicable or unspecified (principal)
CPT/HCPCS: 76816

== ENCOUNTER 2022-07-23 19:56 | Inpatient (IN) | payer OTHER, SELFPAY ==
[2022-07-23 20:30] VITALS: BP 123/53; PULSE 93
--- NOTE | 2022-07-23 20:48 | LDADM ---
This patient, Ramakrishna Canada, was admitted to Labor/Delivery/Recovery 105 on 07/23/22 at 19:56. Plans for labor, pain management and were discussed with patient. Patient/family oriented to hospital policies and general routines including ID bracelet, bed and alarms, visiting hours, pain management, procedures, bathroom and other care routines, personal items, smoking policy, room service/diet and guest tray routines, infant security routines, and visiting hours. Patient/Family are encouraged to report perceived risks to care and to ask questions if they do not understand what they are told or what they should do. See OBIX for further documentation.
[2022-07-23 20:49] VITALS: BMI 36.2
[2022-07-23 21:11] LABS: Basophils Percent Auto 0.2 % (0.2-1.2); Eosinophils Absolute Auto 0.1 K/mm3 (0-0.3); Eosinophils Percent Auto 0.7 % (0-4.4); Hematocrit 34.2 % (37.0-47.0); Hemoglobin 11.5 g/dL (12.0-15.0); Immature Granulocyte Absolute 0.05 K/mm3 (0.00-0.031); Immature Granulocyte Percent A 0.4 % (0-0.5); Lymphocytes Absolute Auto 2.47 K/mm3 (0.9-3.2); Lymphocytes Percent Auto 18.1 % (18.3-44.2); Mean Corpuscular HGB Conc 33.6 g/dl (32-36); Mean Corpuscular Hemoglobin 29.1 pg (26-34); Mean Corpuscular Volume 86.6 fl (80-100); Mean Platelet Volume 10.4 fl (7.4-10.4); Monocytes Absolute Auto 0.7 K/mm3 (0.1-0.6); Monocytes Percent Auto 4.8 % (2.6-8.5); Neutrophils Absolute Auto 10.4 K/mm3 (1.3-6.7); Neutrophils Percent Auto 75.8 % (45.5-73.1); Platelet Count Result 246 k/mm3 (150-375); Red Blood Count 3.95 M/mm3 (4.2-5.4); Red Cell Distribution Width 13.1 % (11.5-14.5); White Blood Count 13.7 K/mm3 (4.5-10.0)
[2022-07-23 21:20] LABS: Alanine Aminotransferase 18 U/L (6-35); Albumin Level 3.5 g/dL (3.5-5.1); Alkaline Phosphatase 166 U/L (38-126); Anion Gap 6 mmol/L (8-16); Aspartate Amino Transferase 26 U/L (14-36); Bilirubin,Total 0.2 mg/dL (0.2-1.3); Blood Urea Nitrogen 7 mg/dL (7-17); Calcium 8.7 mg/dL (8.4-10.2); Carbon Dioxide 22 mmol/L (22-30); Chloride 110 mmol/L (98-107); Estimated CRCL calculation 133 ml/min; Estimated Glomerular Filt Rate > 60; Glucose 83 mg/dL (65-110); Potassium 3.6 mmol/L (3.4-5.0); Sodium 138 mmol/L (137-145); Uric Acid 6.2 mg/dL (2.5-7.5)
[2022-07-23 21:27] LABS: Barbiturate Screen Urine Negative (Negative); Benzodiazepines Screen Urine Negative (Negative)
[2022-07-23 21:35] LABS: Amphetamine Screen Urine Negative (Negative); Cannabinoid Screen Urine Positive (Negative); Cocaine Screen Urine Negative (Negative); Methadone Screen Urine Negative (Negative); Phencyclidine Screen Urine Negative (Negative)
[2022-07-23 21:44] LABS: Opiate Screen Urine Negative (Negative)
[2022-07-23] MEDS: LACTATED RINGERS 1,000 ML 125 ML IV CONT (22:06)
[2022-07-23] MEDS: OXYTOCIN 30 UNITS/NS 500 ML 30 UNITS/500 ML BAG IV CONT (22:07)
[2022-07-23 22:09] VITALS: BP 143/72; PULSE 83
[2022-07-23 22:30] VITALS: RESP 16; TEMP 37.3
[2022-07-23 22:31] VITALS: BP 129/69; PULSE 66
[2022-07-23 23:01] VITALS: BP 114/60; PULSE 64
[2022-07-23 23:31] VITALS: BP 117/60; PULSE 72
[2022-07-24] VITALS (63 sets, daily range): BP systolic 112–159; BP diastolic 49–104; PULSE 54–92; RESP 16–18; TEMP 36.3–36.9; O2SAT 94–100
[2022-07-24] MEDS: fentaNYL CITRATE INJ (*CRX) 100 MCG/2 ML VIAL 50 MCG IV PUSH ×2 (03:04→04:20)
[2022-07-24] MEDS: LACTATED RINGERS 1,000 ML 125 ML IV CONT ×2 (03:08→04:39)
--- NOTE | 2022-07-24 04:14 | WPDANESEPPF ---
Anes - Initial Pre Proc Eval Procedure: Labor epidural Date/Time: 07/24/22 04:14 Surgeon: Sobia Mcguire MD Pre Op Diagnosis: Pain c contractions Pre Op Diagnosis: iol Patient Data Age: 22 Gender: F Height: 1.7 m Weight: 105 kg Last Vital Signs Pulse 80 07/24/22 04:00 BP 140/85 07/24/22 04:00 O2 Del Method Room Air 07/23/22 20:49 Allergies Allergy/AdvReac Type Severity Reaction Status Date / Time amoxicillin Allergy Unknown Hives Verified 07/27/20 09:22 Home Medications Medication Instructions Recorded Confirmed Type aspirin 81 mg chewable tablet 81 mg PO DAILY 07/21/20 07/27/20 History vit no.95-ferrous 1 tablet PO DAILY 07/21/20 07/27/20 History fumarate 28 mg-folic acid 800 mcg tablet () labetalol 100 mg tablet 100 mg PO Q12HR #60 tabs 07/26/20 07/27/20 Rx calcium carbonate 600 mg-vitamin 1 tablet PO DAILY 07/27/20 07/27/20 History D3 10 mcg (400 unit) tablet folic acid 1 mg tablet 1 mg PO DAILY 07/27/20 07/27/20 History Laboratory Tests 07/23/22 07/23/22 07/23/22 20:42 20:42 20:42 WBC 13.7 K/mm3 H K/mm3 (4.5-10.0) RBC 3.95 M/mm3 L M/mm3 (4.2-5.4) Hgb 11.5 g/dL L D g/dL (12.0-15.0) Hct 34.2 % L % (37.0-47.0) MCV 86.6 fl fl (80-100) MCH 29.1 pg pg (26-34) MCHC 33.6 g/dl g/dl (32-36) RDW 13.1 % % (11.5-14.5) Plt Count 246 k/mm3 k/mm3 (150-375) MPV 10.4 fl fl (7.4-10.4) Immature Gran % (Auto) 0.4 % % (0-0.5) Neut % (Auto) 75.8 % H % (45.5-73.1) Lymph % (Auto) 18.1 % L % (18.3-44.2) [place] % (Auto) 4.8 % % (2.6-8.5) Eos % (Auto) 0.7 % % (0-4.4) Baso % (Auto) 0.2 % % (0.2-1.2) Lymph # (Auto) 2.47 K/mm3 K/mm3 (0.9-3.2) [place] # (Auto) 0.7 K/mm3 H K/mm3 (0.1-0.6) Eos # (Auto) 0.1 K/mm3 K/mm3 (0-0.3) Baso # (Auto) 0.0 K/mm3 K/mm3 (0.0-0.1) Abs Immat Gran (auto) 0.05 K/mm3 H K/mm3 (0.00-0.031) Absolute Neuts (auto) 10.4 K/mm3 H K/mm3 (1.3-6.7) Absolute Nucleated RBC 0.0 K/mm3 K/mm3 (0.0-0.012) Nucleated RBC % 0.0 % % (0.0-0.2) Sodium Potassium Chloride Carbon Dioxide Anion Gap BUN Creatinine Estim Creat Clear Calc Estimated GFR Glucose Uric Acid Calcium Total Bilirubin AST ALT Alkaline Phosphatase Total Protein Albumin Urine Opiates Screen Urine Methadone Screen Ur Barbiturates Screen Ur Phencyclidine Scrn Ur Amphetamine Screen U Benzodiazepines Scrn Urine Cocaine Screen U Cannabinoids Screen RPR Pending Blood Type A Positive Antibody Screen Negative 07/23/22 07/23/22 20:42 20:42 WBC RBC Hgb Hct MCV MCH MCHC RDW Plt Count MPV Immature Gran % (Auto) Neut % (Auto) Lymph % (Auto) [place] % (Auto) Eos % (Auto) Baso % (Auto) Lymph # (Auto) [place] # (Auto) Eos # (Auto) Baso # (Auto) Abs Immat Gran (auto) Absolute Neuts (auto) Absolute Nucleated RBC Nucleated RBC % Sodium 138 mmol/L mmol/L (137-145) Potassium 3.6 mmol/L mmol/L (3.4-5.0) Chloride 110 mmol/L H mmol/L (98-107) Carbon Dioxide 22 mmol/L mmol/L (22-30) Anion Gap 6 mmol/L L mmol/L (8-16) BUN 7 mg/dL mg/dL (7-17) Creatinine 0.70 mg/dL mg/dL (0.7-1.0) Estim Creat Clear Calc 133 ml/
--- NOTE | 2022-07-24 04:43 | WPDANESEPN ---
Anes - Epidural Procedure Note Date/Time: 07/24/22 04:43 Consent: I have discussed with the patient/family/POA, the placement of an epidural catheter and the use of epidural narcotic/local anesthetic for labor analgesia and/or postoperative pain management, including associated potential risks, benefits, complications and side effects. I have discussed alternative methods of labor analgesia and/or postoperative pain management. The patient/family/POA, understand(s) and wish(es) to proceed with epidural narcotic/local anesthetic for labor analgesia and/or postoperative pain management. Time-Out: A pre-procedural Time-Out was completed immediately before starting the procedure and confirmed: Patient Identification, Site, Procedure, Patient Position and the Availability of Requisite Equipment. Clinical Indications: Pain c contractions Epidural Insertion Note Patient position: sitting Skin prep: chlorhexidine Needle: 18g Tuohy-Schliff Catheter: 20g Unstyleted Technique: Loss of resistance. Level of insertion: L3/4 Catheter skin steve (cm): 5 Length in epidural space (cm): 10 Skin anesthesia: lidocaine 1% Test dose: 1.5% Lidocaine with 1:[id number] Epi, negative for subarachnoid Inj and negative for intravascular Inj Time of test dose: 04:30 Observations: tolerated well Complications: none
--- NOTE | 2022-07-24 07:25 | PM.OBPNLAB ---
Pain Control Date/time seen: 07/24/22 07:15 Pain control: epidural Comments: Feeling intense pelvic pressure. Pelvic Exam Dilation (cm): 8 station: 0 Amniotic membrane status: Bulging Contractions Monitor mode: External Contraction frequency: 2 Contraction duration: 60 Contraction pattern: Regular Contraction phase: Contraction Contraction intensity: Strong/Firm Status status: Category ll Assessment and Plan Assessment: active labor Plan: continuous present management Comments: CNM to bedside. patient uncomfortable due to pelvic pressure. Discussed options including a ROM. Patient desires. Amniotomy performed and moderate amount of clear fluid returned. There is a normal amount of bloody show present. FHTs reassuring by moderate variability and accelerations. Anticipate vaginal . recent BP is more elevated likely due to pain.
[2022-07-24] MEDS: miSOPROStol 200 MCG TABLET 800 MCG RECTAL (08:03)
--- NOTE | 2022-07-24 08:14 | P.PCNOB_ITS ---
OB - Delivery Note Procedure Delivery date: 07/24/22 Procedure: Induction method: Per Pitocin Protocol Delivery augmentation: Rupture of Membranes Delivery monitor: External FHT and External Uterine Route of delivery: Episiotomy description: None Laceration Description: None Specimen: Yes Quantitative Blood Loss (ml): 250 Anesthesia type: Epidural Disposition: Floor Narrative: Patient pushed spontaneously with contractions and quickly brought the head to a crown. Over the next 2 pushes she delivered the head in a very controlled manner. There was a compound presentation with the left hand at the neck. A dark red gush of blood was noted with the delivery of the anterior shoulder. Remainder of the was delivered spontaneously with approximately 100 mL of dark red blood. The infant was placed on the maternal abdomen and care was transferred to the pediatric team. After 1 minute of life the cord was doubly clamped and cut. Cord gases and cord blood was obtained. A short time later the placenta was delivered in a very abrupt manner as the patient coughed. Patient was delivered with another 100 mL of dark red blood. All counts were correct. [place] Baby Date of : 07/24/22 Time of : 07:53 Weeks of gestation at delivery: 39 Infant gender: Female Weight (pounds): 6 Weight (ounces): 12 presentation: compound (left hand) position: Right Occiput Anterior Placenta delivery description: Spontaneous Cord Vessel Description: 3 Vessels score one minute: 7 score five minutes: 9
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
[2022-07-24] MEDS: IBUPROFEN 600 MG TABLET (10:12)
--- NOTE | 2022-07-24 10:33 | PC.NURSE ---
Patient transferred to post room #292 via (W/C ). Support person present. Oriented to unit, room, information board, rooming in, admission packet and security measures. Patient verbalizes understanding.
--- NOTE | 2022-07-24 10:50 | PM.IMHP ---
H&P: HPI History of Present Illness Date/Time: 07/24/22 10:50 Chief Complaint: , now delivered. Undesired future fertility. Review of Systems Review of Systems: PPD 0 from . Lochia WNL. Epidural catheter remains in place. All systems reviewed & are unremarkable except as noted in HPI and below PMFSH Past Medical History Medical History Anemia Hypertension Vaginal delivery Surgical History Surgical History H/O arthroscopic knee surgery Family History Family History Grandparent Hypertension Other Diabetes mellitus Family history of arthritis Family history of malignant neoplasm Family history of neuropathy Social History Social History Social History: the patient stated that she quit smoking while she was it and then when she went home yesterday she had 2-3 cigarettes. No alcohol marijuana or illicit drugs. She is currently not working. 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 The father of her child is Gareth Sweeney who she would like to have power state's attorney. Patient is single. Years smoked: 2,014 Smoking status: Current some day smoker Tobacco type: cigarettes Second hand tobacco smoke exposure: Yes Alcohol intake: unknown Substance use: current Last use: 07/23/2022 Lack of Transportation: No Lack of Food: Never True Current Housing: I Have Housing Concerned About Future Housing: No Difficulty Paying Gas/Electric Bills: No Difficulty Paying for Meds: No Currently Unemployed: No Education: High School Diploma/GED Difficulty w/ Childcare or Family Care: No Gender identity (if verbalized by the patient): Female Spiritual care concerns: No Meds Home Medications and Allergies Home Medications Medication Instructions Recorded Confirmed Type aspirin 81 mg chewable tablet 81 mg PO DAILY 07/21/20 07/27/20 History vit no.95-ferrous 1 tablet PO DAILY 07/21/20 07/27/20 History fumarate 28 mg-folic acid 800 mcg tablet () labetalol 100 mg tablet 100 mg PO Q12HR #60 tabs 07/26/20 07/27/20 Rx calcium carbonate 600 mg-vitamin 1 tablet PO DAILY 07/27/20 07/27/20 History D3 10 mcg (400 unit) tablet folic acid 1 mg tablet 1 mg PO DAILY 07/27/20 07/27/20 History Allergies Allergy/AdvReac Type Severity Reaction Status Date / Time amoxicillin Allergy Unknown Hives Verified 07/27/20 09:22 Vital Signs Vital Signs - 24 hr 07/23/22 20:30 07/23/22 22:09 07/23/22 22:31 Temperature Pulse Rate 93 83 66 Respiratory Rate Blood Pressure 123/53 L 143/72 H 129/69 Pulse Oximetry Oxygen Delivery 07/23/22 23:01 07/23/22 23:31 07/24/22 00:01 Temperature Pulse Rate 64 72 69 Respiratory Rate Blood Pressure 114/60 117/60 129/69 Pulse Oximetry Oxygen Delivery 07/24/22 00:31 07/24/22 01:01 07/24/22 01:31 Temperature Pulse Rate 66 70 70 Respiratory Rate Blood Pressure 112/50 L 119/49 L 114/51 L Pulse Oximetry Oxygen Delivery 07/24/22 02:01 07/24/22 02:31 07/24/22 03:01 Temperature Pulse Rate 62 61 69 Respiratory Rate Blood Pressure 126/62 144/61 H 141/73 H Pulse Oximetry Oxygen Delivery 07/24/22 03:31 07/24/22 04:00 07/24/22 04:22 Temperature Pulse Rate 57 L 80 Respiratory Rate Blood Pressure 127/77 140/85 Pulse Oximetry 100 Oxygen Delivery 07/24/22 04:23 07/24/22 04:26 07/24/22 04:27 Temperature Pulse Rate 65 72 59 L Respiratory Rate Blood Pressure 159/104 H 151/98 H 151/90 H Pulse Oximetry 99 Oxygen Delivery 07/24/22 04:31 07/24/22 04:32 07/24/22 04:36 Temperature Pulse Rate 66 65 Respiratory Rate Blood Pressure 139/72 140/76 Pulse Oximetry 99 94 Oxygen
[2022-07-24 11:53] LABS: Rapid Plasma Reagin Non-Reactive (NonReactive)
[2022-07-24 14:03] LABS: Creatinine Urine 99.8 mg/dL; Total Protein Urine Random 16 mg/dL; Ur Ttl Prot Creatinine Ratio 0.16 mg/mg (0-0.20)
[2022-07-24] MEDS: ACETAMINOPHEN 325 MG TABLET 650 MG PO (15:17)
[2022-07-24] MEDS: IBUPROFEN 600 MG TABLET PO (22:40)
[2022-07-25] MEDS: IBUPROFEN 600 MG TABLET PO ×2 (04:47→10:19)
[2022-07-25 04:50] VITALS: BP 117/57; PULSE 69; RESP 18; TEMP 36.9
[2022-07-25 07:35] VITALS: BP 137/90; PULSE 55; RESP 16; TEMP 36.8; O2SAT 98
[2022-07-25 07:52] LABS: Hematocrit 29.2 % (37.0-47.0)
--- NOTE | 2022-07-25 07:58 | WPDANLDPN2 ---
Anes-Prog Note L&D Date/Time: 07/25/22 07:58 Comfortable throughout: labor and delivery Neuraxial method: epidural Epidural/Spinal procedure site: clean & non-tender Neuro status: Neuro function grossly intact. Cardiovascular status: normal Respiratory status: normal Airway patency: baseline Mental status: baseline Post-Op hydration status: normal Vital Signs: Last Vital Signs Temp 36.9 C 07/25/22 04:50 Pulse 69 07/25/22 04:50 Resp 18 07/25/22 04:50 BP 117/57 L 07/25/22 04:50 Pulse Ox 100 07/24/22 15:29 O2 Del Method Room Air 07/24/22 19:05 Pain score (VAS): 08/29 I/O: Intake & Output 07/24/22 07/24/22 07/25/22 15:59 23:59 07:59 Intake Total 240 400 Output Total 591 Balance -351 400 Post-procedural complaints: none Patient feedback: Patient satisfied with anesthetic care. Other findings: Pt canceled post tubal ligation, Epidural DCd with tip intact
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
--- NOTE | 2022-07-25 09:51 | PC.NURSE ---
Patient viewed the discharge video Mother & Baby Care, The First Two Weeks online. Patient was given the opportunity and encouraged to ask questions. Patient verbalized understanding of information shared and has been given the mother/baby guide for home reference.
[2022-07-25] MEDS: POLYSACCHARIDE IRON COMPLEX 150 MG CAPSULE PO (10:10)
[2022-07-26 09:38] VITALS: BP 148/81; PULSE 88; RESP 20; TEMP 37.2; O2SAT 99
== END 2022-07-25 10:13 | disposition home or self-care (01) | DRG 560 ==
LOC: ANHLDR 07-24 08:26 → ANHOB2 07-24 11:11
PROVIDERS: Advanced Practice Midwife; Admitting Provider Obstetrics & Gynecology Gynecology; PCP Emergency Medicine; Visit Provider Obstetrics & Gynecology Gynecology
DX: O10.92 Unspecified pre-existing hypertension complicating childbirth (principal); O99.324 Drug use complicating childbirth; O99.314 Alcohol use complicating childbirth; Z37.0 Single live birth; D64.9 Anemia, unspecified; Z3A.39 39 weeks gestation of pregnancy; O99.02 Anemia complicating childbirth; O32.6XX0 Maternal care for compound presentation, not applicable or unspecified; O36.8330 Maternal care for abnormalities of the fetal heart rate or rhythm, third trimester, not applicable or unspecified; Z62.810 Personal history of physical and sexual abuse in childhood; F12.90 Cannabis use, unspecified, uncomplicated; O99.334 Smoking (tobacco) complicating childbirth; F17.210 Nicotine dependence, cigarettes, uncomplicated; Z15.89 Genetic susceptibility to other disease; Z87.59 Personal history of other complications of pregnancy, childbirth and the puerperium
CPT/HCPCS: 36415; 80053; 80307; 82570; 84156; 84550; 85014; 85018; 85025; 86592; 86850; 86900; 86901; 88307; A9270; J2590; J2795; J3010; J7120